=== PATIENT | male | born 1945 | race Caucasian/White ===

== ENCOUNTER 2024-11-09 10:42 | Emergency (ER) | payer MEDICARE ==
[~2024-11-09] VITALS: Ht 170.2 cm; Wt 70.3 kg
--- NOTE | 2024-11-09 11:44 | ERN ---
General Chief Complaint: Cough Stated Complaint: PULMONARY ISSUE,MULTIPLE COMPLAINTS Time Seen by MD: 10:43 Source: patient History of Present Illness Initial Comments Patient is a 79-year-old gentleman coming in to be evaluated for cough congestion shortness of breath. He states that he has a history of pulmonary fibrosis and frequently presents with cough. Patient was not taken any medications for his cough in his here for further evaluation. Allergies: Coded Allergies: amoxicillin (Unverified Allergy, Unknown, 11/09/24) clavulanic acid (Unverified Allergy, Unknown, 11/09/24) sulfamethoxazole (Unverified Allergy, Unknown, DIZZINESS, 11/09/24) trimethoprim (Unverified Allergy, Unknown, DIZZINESS, 11/09/24) Past Medical History Past Medical History: Arthritis, High Cholesterol, Hypertension Medical History Other: PUL. FIBROSIS, BACK SX, NEUROPATHY Past Surgical History: Other Surgical History Other: SKIN TUMOR REMOVAL, LT ROTATOR CUFF ROS Dictation CONSTITUTIONAL: No chills, no fever, no weakness, no diaphoresis, no malaise. HEAD/FACE: No signs of trauma. EENT: No eye pain, no blurred vision, no tearing, no double vision, no ear pain, no ear discharge, no nose pain, no nasal congestion, no throat pain, no throat swelling, no mouth pain. RESPIRATORY: cough, no orthopnea, SOB, no stridor, no wheezing. CARDIOVASCULAR: No chest pain, no edema, no palpitations, no syncope. GASTROINTESTINAL/ABDOMINAL: No abdominal pain, no constipation, no diarrhea, no nausea, no vomiting. GENITOURINARY: No abnormal discharge, no dysuria, no frequent urination, no hematuria. No complaints of pain in the genitals. MUSCULOSKELETAL: No back pain, no gout, no joint pain, no joint swelling, no muscle pain, no muscle stiffness, no neck pain. INTEGUMENTARY: No change in color, no change in hair/nails, no dryness, no lesion, no lumps, no rash. NEUROLOGICAL/PSYCH: No anxiety, not depressed, no emotional problem, no headache, no numbness, no pre-existing deficit, no history of seizures, no tremors, no weakness. HEMATOLOGIC/LYMPHATIC: Not anemic, no history of blood clots, no apparent bleeding, no bruising, glands not swollen. All Systems Negative, Except as Noted. Physical Exam Physical Exam Dictation VITAL SIGNS: Reviewed. GENERAL APPEARANCE: Alert, oriented x3, no acute distress, obese. HEAD AND FACE: Non-traumatic. EYES: PERRL, pink conjunctivas, eyelid no trauma, anterior chamber clear. EARS: Pinnas intact and no signs of trauma or erythema. Ear canals clear and no discharge. TMs no erythema. NOSE: No discharge, no bleeding. OROPHARYNX: Mouth normal, teeth no caries, tongue pink. Pharynx clear, no erythema. Tonsils no exudates, no abscesses noted. Mucous membrane moist. NECK: Supple, non-tender, no thyromegaly, no masses, no JVD, no bruits. BREAST: Deferred. CHEST: No tenderness, no crepitus, no paradoxical movement, no retractions. LUNGS: Clear, well-ventilated, symmetric, no rales, no wheezing, no rhonchi, no stridor, good breath sounds bilaterally. HEART: Regular rate, regular rhythm, no murmur, no gallops. VASCULAR: No peripheral edema. ABDOMEN: Soft, positive bowel sounds, nondistended, no guarding, nontender, no rebound, no masses no hepatomegaly, no splenomegaly, no Nolasco's sign, no hernias. RECTAL: Deferred. GENITAL: Deferred. NEUROLOGICAL: Normal speech, gross motor function intact, gross sensory function intact. MUSCULOSKELETAL: Neck nontender, full range of motion, back nontender, full range of motion. EXTREMITIES: Nontender, full range of motion. SKIN: Color pink, dry, no turgor, no rash, no lacerations, no abrasions, no contusions. LYMPHATICS: Deferred. Results Laboratory and Microbiology Lab and Micro Result Laboratory Tests Test 11/09/24 11:49 11/09/24 13:58 White Blood Count 6.3 K/uL (4.8-10.8) Red Blood Count 4.33 MIL/uL (4.50-6.20) L Hemoglobin 15.0 g/dL (14.0-18.0) Hematocrit 44.4 % (42-54) Mean Corpuscular Volume 102.5 fL (79-99) H Mean Corpuscular Hemoglobin 34.6 pg (27.0-33.0) H Mean Corpuscular Hemoglobin Concent 33.8 g/dL (32.0-36.0) Red Cell Distribution Width 14.3 % (11.0-15.5) Platelet Count 97 K/uL (130-400) L Mean Platelet Volume 8.7 fL (7.5-10.5) Immature Granulocyte % (Auto) 0.3 % (0-1) Neutrophils (%) (Auto) 75.4 % (40.0-77.0) Lymphocytes (%) (Auto) 14.9 % (21.0-51.0) L Monocytes (%) (Auto) 9.2 % (3.0-13.0) Eosinophils (%) (Auto) 0.0 % (0.0-8.0) Basophils (%) (Auto) 0.2 % (0.0-5.0) Neutrophils # (Auto) 4.8 K/uL (1.8-7.7) Lymphocytes # (Auto) 0.9 K/uL (1.0-4.8) L Monocytes # (Auto) 0.6 K/uL (0.1-1.0) Eosinophils # (Auto) 0.00 K/uL (0.00-0.70) Basophils # (Auto) 0.01 K/uL (0.00-0.20) Absolute Immature Granulocyte (auto 0.02 K/uL (0-1) Nucleated Red Blood Cells 0.0 % (0.0-0.19) Sodium Level 135 mmol/L (136-145) L Potassium Level 3.6 mmol/L (3.5-5.1) Chloride Level 98 mmol/L (101-111) L Carbon Dioxide Level 32 mmol/L (21-32) Blood Urea Nitrogen 10 mg/dL (7-18) Creatinine 0.8 mg/dL (0.5-1.3) Glomerular Filtration Rate Calc 91 mL/min (>90) Random Glucose 91 mg/dL (70-105) Total Calcium 8.9 mg/dL (8.5-10.1) Magnesium Level 1.70 mg/dL (1.80-2.40) L Troponin I High Sensitivity 22 ng/L (4-75) B-Type Natriuretic Peptide 281 pg/mL (0-100) H Influenza Type A Antigen Negative For Type A Influenza Type B Antigen Negative For Type B SARS-CoV-2, RNA, NAAT NEGATIVE SARS CoV-2 Labs Reviewed?: Yes EKG/XRAY/US/CT/MRI EKG Comment 11/09/2024 time 11:43 a.m. Ventricular rate 84 Sinus rhythm RI [address] wave elevation or depression Ultrasound Comment [address] [place] [address] IMAGING REPORT Signed PATIENT: CARLY RODRIGUEZ MR#: [id number] : 1945 SEX: M AGE: 79 LOCATION: [facility] ORDER 34 STATUS: REG ER REPORT#: [id number] SERVICE 33 REASON: cough ORDERING PHYSICIAN: TUYET PLUMMER MD PROCEDURE: CXR1VW - CHEST 1VW Exam Type: CHEST 1VW Clinical Information: cough Comparison: None Findings: The lungs exam demonstrates interstitial markings prominence consistent with interstitial pulmonary fibrotic changes. There is no airspace disease to suggest pneumonia. The heart is normal in size. The bone examination shows no significant abnormalities. Impression: Interstitial pulmonary fibrotic changes. No airspace disease. DICTATED BY: ABHINAV SANTILLAN MD DATE: 11/09/241225 ELECTRONICALLY SIGNED BY: ABHINAV SANTILLAN MD DATE: 11/09/241227 MDM MDM: DIFFERENTIAL DIAGNOSIS: URI, HISTORY OF COPD, PULMONARY FIBROSIS, PATIENT IS A 79-YEAR-OLD GENTLEMAN COMING IN TO BE EVALUATED FOR COUGH AND CONGESTION. LABORATORY WORKUP NEGATIVE FOR ACUTE FINDINGS. PATIENT WILL BE DISCHARGED WITH A DIAGNOSIS OF COPD EXACERBATION. MEDICATION WILL BE PROVIDED FOR SYMPTOMATIC RELIEF. I ADVISED HIM APPROPRIATE FOLLOW UP WITH PCP IN 1-2 DAYS. ED Course Orders Procedure Category Date Status Time Cbc With Differential LAB 11/09/24 Complete 11:34 B-Type Natriuretic LAB 11/09/24 Complete Peptide 11:34 Chest 1vw RAD 11/09/24 Resulted 11:34 12 Lead Ekg Tracing- EKG 11/09/24 Complete Technical 11:34 Magnesium LAB 11/09/24 Complete 11:34 Troponin I High LAB 11/09/24 Complete Sensitivity 11:34 Basic Metabolic Panel LAB 11/09/24 Complete 11:34 Covid Rna Naat LAB 11/09/24 Complete 11:34 Influenza Type A & B, LAB 11/09/24 Complete Rapid 11:34 Ipratropium/Albuterol PHA 11/09/24 Complete Neb (Duoneb) 12:00 Methylprednisolone PHA 11/09/24 Complete Succ 125mg (Solu-Medr 12:00 Current Medications Medications (Trade) Dose Ordered Sig/William Route PRN Reason Start Time Stop Time Status Last Admin Dose Admin Albuterol (DUOneb) 2 udvial ONCE ONCE IH 11/09/24 12:00 11/09/24 12:01 DC 11/09/24 12:43 Methylprednisolone Sodium Succinate (Solu-medROL 125MG) 125 mg ONCE ONCE IVP 11/09/24 12:00 11/09/24 12:01 DC 11/09/24 13:04 Vital Signs Date Time Temp Pulse Resp B/P (MAP) Pulse Ox O2 Delivery O2 Flow Rate FiO2 11/09/24 13:44 98.8 82 20 106/61 96 Room Air* 0 21 11/09/24 12:43 58 18 11/09/24 11:29 99.3 82 20 138/81 94 Room Air 0 DX & DISP Disposition: Discharge Departure Impression: Primary Impression: COPD exacerbation Condition: Stable Scripts Albuterol Sulfate (Ventolin Hfa) 90 Mcg Hfa.aer.ad 2 PUFF IH Q4HPRN PRN for wheezing for 30 Days, #18 GM 0 Refills Prov: TUYET PLUMMER MD 11/09/24 Prednisone (Prednisone) 5 Mg Tablet 1 TAB PO BID for 7 Days, #14 TAB 0 Refills Prov: TUYET PLUMMER MD 11/09/24 Additional Instructions: FOLLOW-UP WITH PRIMARY CARE PROVIDER IN 1 TO 2 DAYS. TAKE MEDICATIONS DIRECTED HERE IN THE EMERGENCY ROOM. OKAY TO CONTINUE HOME MEDICATIONS UNLESS OTHERWISE DISCUSSED DURING YOUR VISIT IN THE EMERGENCY ROOM TODAY. RETURN TO YOUR NEAREST EMERGENCY ROOM IF SYMPTOMS WORSEN OR IF THERE IS NO IMPROVEMENT. CALL 911 IF YOU NEED IMMEDIATE ASSISTANCE. TAKE TYLENOL SGFP-QBT-ELNSTHV NEEDED AND IF NO CONTRAINDICATIONS ARE PRESENT. INCREASE ORAL HYDRATION. A WOUND CULTURE OR URINE CULTURE WAS ORDERED HERE IN THE EMERGENCY ROOM DEPARTMENT PLEASE FOLLOW-UP WITH PRIMARY CARE PROVIDER AND ADVISE THEM TO GET REPEAT PORTS FROM OUR FACILITY. IF YOU HAD ANY SHAUNA WRAP/SPLINTS THAT WERE APPLIED HERE, PLEASE DO NOT REMOVE THEM UNTIL YOU SEE YOUR PRIMARY CARE OR SPECIALTY. REFERRALS: Referrals: CARYL VICENTE MD Time of Disposition: 14:35 TUYET PLUMMER MD Nov 09, 2024 11:44
--- NOTE | 2024-11-09 11:50 | EKG ---
[facility] Test Date: 2024-11-09 Test Time: 11:43:00 Pat Name: CARLY RODRIGUEZ Department: ED Room: Gender: M Assembly Line Inspector: [id number] : 1945 Requested By: TUYET PLUMMER Order Number: [id number] Reading MD: Vinh Irizarry Measurements Intervals [place] Rate: 84 P: 14 WA: 220 QRS: -2 QRSD: 106 T: 4 QT: 368 QTc: 407 Interpretive Statements Sinus rhythm Multiple premature complexes, vent & supraven Prolonged WA interval No previous ECG available for comparison Electronically Signed On 11-09-2024 17:18:10 BARGE CAPTAIN by Vinh Irizarry Please click the below link to view image of tracing.
[2024-11-09 12:05] LABS: BASOPHILS # (AUTO) 0.01 K/uL (0.00-0.20); BASOPHILS % (AUTO) 0.2 % (0.0-5.0); HEMATOCRIT 44.4 % (42-54); IMMATURE GRANULOCYTE ABSOLUTE 0.02 K/uL (0-1); LYMPHOCYTES # (AUTO) 0.9 K/uL (1.0-4.8); LYMPHOCYTES % (AUTO) 14.9 % (21.0-51.0); MEAN CORPUSCULAR HEMOGLOBIN 34.6 pg (27.0-33.0); MEAN CORPUSCULAR HGB CONC 33.8 g/dL (32.0-36.0); MEAN CORPUSCULAR VOLUME 102.5 fL (79-99); MONOCYTES # (AUTO) 0.6 K/uL (0.1-1.0); MONOCYTES % (AUTO) 9.2 % (3.0-13.0); NEUTROPHILS # (AUTO) 4.8 K/uL (1.8-7.7); NEUTROPHILS % (AUTO) 75.4 % (40.0-77.0); PLATELET COUNT (AUTO) 97 K/uL (130-400); RED BLOOD CELL COUNT(AUTO) 4.33 MIL/uL (4.50-6.20); RED CELL DISTRIBUTION WIDTH 14.3 % (11.0-15.5); WHITE BLOOD COUNT (AUTO) 6.3 K/uL (4.8-10.8)
[2024-11-09 12:15] LABS: CREATININE 0.8 mg/dL (0.5-1.3); MAGNESIUM 1.7 mg/dL (1.80-2.40); POTASSIUM 3.6 mmol/L (3.5-5.1)
--- NOTE | 2024-11-09 12:28 | HMCIMG ---
Exam Type: CHEST 1VW Clinical Information: cough Comparison: None Findings: The lungs exam demonstrates interstitial markings prominence consistent with interstitial pulmonary fibrotic changes. There is no airspace disease to suggest pneumonia. The heart is normal in size. The bone examination shows no significant abnormalities. Impression: Interstitial pulmonary fibrotic changes. No airspace disease.
[2024-11-09 12:29] LABS: B-TYPE NATRIURETIC PEPTIDE 281 pg/mL (0-100)
[2024-11-09 12:43] VITALS: PULSE 58; RESP 18
[2024-11-09] MEDS: IpraTROPium/alBUTERol SULFATE 3 ML SOLUTION IH ONE (12:43)
[2024-11-09] MEDS: Solu-medROL 125MG VIAL IVP ONE (13:04)
[2024-11-09 14:23] LABS: SARS-CoV-2, RNA, NAAT NEGATIVE SARS CoV-2 (NEGATIVE)
[2024-11-09 14:30] LABS: INFLUENZA TYPE A Negative For Type A (NEGATIVE); INFLUENZA TYPE B Negative For Type B (NEGATIVE)
[2024-11-09] MEDS ORDERED: ALBU18HF7 IH (14:36)
[2024-11-09] MEDS ORDERED: PRED5TAB PO (14:36)
[2024-11-09 14:38] VITALS: BP 102/58; PULSE 80; RESP 18; TEMP 98; O2SAT 96
== END 2024-11-09 14:52 | disposition home or self-care (01) ==
LOC: EDH 10:42
DX: J44.1 Chronic obstructive pulmonary disease with (acute) exacerbation (principal); E78.00 Pure hypercholesterolemia, unspecified; I10 Essential (primary) hypertension; M19.90 Unspecified osteoarthritis, unspecified site; Z88.0 Allergy status to penicillin; Z88.1 Allergy status to other antibiotic agents; Z88.2 Allergy status to sulfonamides; Z20.822 Contact with and (suspected) exposure to COVID-19; Z98.890 Other specified postprocedural states
CPT/HCPCS: 99285; 96374; 71045; 87635; 83735; 84484; 80048; 83880; 85025; 87804 ×2; 36415; 93005; 94640; J2919